=== PATIENT | female | born 1960 | race African-American/Black ===

== ENCOUNTER → 2023-12-05 | Emergency (ER) | payer OTHER ==
[~2023-12-05] VITALS: Ht 167.6 cm; Wt 90.0 kg
[~2023-12-05] MED LIST: ACET325T52 MT
[2023-12-05 14:31] VITALS: BP 160/90; PULSE 91; RESP 16; TEMP 98.7; O2SAT 98
[2023-12-05 16:14] LABS: BASOPHILS % 0.5 % (0.0-2.0); EOSINOPHILS % 0.4 % (0.0-5.0); HEMATOCRIT. 32.2 % (36.0-48.0); HEMOGLOBIN. 10.3 g/dL (12.0-16.0); LYMPHOCYTES % 14.5 % (20.0-50.0); MEAN CORPUSCULAR HEMOGLOBIN 28.6 pg (28.0-32.0); MEAN CORPUSCULAR HGB CONC 31.9 g/dL (31.0-37.0); MEAN CORPUSCULAR VOLUME 89.7 fL (81.0-99.0); MEAN PLATELET VOLUME 7.7 fl (7.4-10.4); MONOCYTES % 7.2 % (2.0-8.0); NEUTROPHILS % 77.4 % (40.0-76.0); PLATELET 229 x1000/uL (130-400); RED BLOOD CELL COUNT 3.59 mill/uL (4.2-5.4); RED CELL DISTRIBUTION WIDTH 17.9 % (11.6-14.6); WHITE BLOOD COUNT 8.5 x1000/uL (4.5-11.0)
[2023-12-05 16:19] LABS: CHLORIDE 103 mEq/L (98-107); POTASSIUM 3.8 mEq/L (3.5-5.1); SODIUM 139 mEq/L (136-145)
[2023-12-05 16:20] LABS: CARBON DIOXIDE 30 mEq/L (21-32)
[2023-12-05 16:21] LABS: CALCIUM 10.1 mg/dL (8.7-10.4)
[2023-12-05 16:25] LABS: CREATININE 2.5 mg/dL (0.6-1.0); GLUCOSE 185 mg/dL (70-105); UREA NITROGEN BLOOD 65 mg/dL (9-23)
[2023-12-05 16:27] LABS: ALANINE AMINOTRANSFERASE 16 IU/L (10-49); ALBUMIN 4.5 g/dL (3.2-4.8); ASPARTATE AMINOTRANSFERASE 18 IU/L (<34); BILIRUBIN TOTAL 0.3 mg/dL (0.1-1.0)
[2023-12-05 16:28] LABS: PROTEIN TOTAL 7.7 g/dL (6.0-8.3)
== END ==
LOC: ER 14:25
DX: M25.551 Pain in right hip (principal); M25.561 Pain in right knee; I48.91 Unspecified atrial fibrillation; Z95.0 Presence of cardiac pacemaker; W18.39XA Other fall on same level, initial encounter; Y93.89 Activity, other specified; Y92.89 Other specified places as the place of occurrence of the external cause; Y99.8 Other external cause status
CPT/HCPCS: 36415; 73502; 73562; 80053; 82962; 85025; 99284